=== PATIENT | female | born 1975 | race Caucasian/White ===

== ENCOUNTER → 2018-02-15 | Outpatient (CLI) | payer OTHER ==
--- NOTE | 2018-02-16 13:14 | RADIOLOGY IMAGING REPORT ---
FACILITY: [facility] [place] PATIENT NAME: CAROL TEIXEIRA : [id number] MR: [id number] V: [id number] EXAM DATE: [id number] ORDERING PHYSICIAN: KAYLIN MURPHY TECHNOLOGIST: Krysta Smith PROCEDURE:BILATERAL DIGITAL SCREENING MAMMOGRAM WITH CAD ASSISTED INTERPRETATION & 3D TOMOSYNTHESIS COMPARISON:02/10/17, 01/22/16, 06/09/14 INDICATIONS:SCREENING FINDINGS: Breast parenchyma is heterogeneously dense. There are no mammographic findings concerning for malignancy. There is no significant interval change. DIAGNOSTIC CATEGORY 1--NEGATIVE. RECOMMENDATIONS: ROUTINE MAMMOGRAM AND CLINICAL EVALUATION. IMPRESSION: BIRADS 1: Negative. Dictated by: Angel Liu on 02/16/2018 at 9:33 Transcribed by: MICHAELLE on 02/16/2018 at 12:39 Approved by: Angel Liu on 02/16/2018 at 13:14 [facility]
== END ==
LOC: MAMO 03:18
PROVIDERS: ATTEND Obstetrics & Gynecology
DX: Z12.31 Encounter for screening mammogram for malignant neoplasm of breast (principal)
CPT/HCPCS: 77063; 77067

== ENCOUNTER → 2018-08-26 | Outpatient (CLI) | payer OTHER ==
[~2018-08-26] MED LIST: MULT1CAP59 PO
--- NOTE | 2018-08-26 14:26 | RADIOLOGY IMAGING REPORT ---
FACILITY: [facility] [place] PATIENT NAME: Theresa Gunter : 1975 MR: [id number] V: [id number] EXAM DATE: ORDERING PHYSICIAN: DEAN DUNN TECHNOLOGIST: Location: [facility] [place] Patient: Theresa Gunter : 1975 Visit/Account:[id number] Date of Sevice: 08/26/2018 [facility] TRANSVAGINAL NON-OB HISTORY: OVULATION BLEEDING TECHNIQUE: Transvaginal ultrasound pelvis. COMPARISON: None. FINDINGS: Uterus: ; 8.5 cm length x 5 cm AP x 5.2 cm transverse. Myometrium: There Is a 1.4 cm submucosal fibroid along the right-sided the uterine body. Also noted is a 1.1 cm left intramural fundal fibroid. Endometrium: Unremarkable; double thickness 8.1 mm. Cervix: Several small calcifications are noted within the cervix. Ovaries: Right - 3 x 1.2 x 2.9 cm. There is an 9 mm cyst in the right ovary Left - 2.8 x 2.2 x 3 cm. There is a 1.9 x 1.9 x 1.6 cm complex cyst in the left ovary with inte rnal septations and debris Blood flow is documented in each ovary by duplex Doppler ultrasound. Adnexa: Grossly unremarkable. Free pelvic fluid: None. IMPRESSION: Two small uterine fibroids as described. The largest measures 1.4 cm 9 mm simple cyst right ovary 1.9 cm complex cyst left ovary with internal septations and debris. Short-term interval follow-up re commended Report Dictated By: Rose Espinosa MD at 08/26/2018 2:18 PM Report E-Signed By: Rose Espinosa MD at 08/26/2018 2:22 PM WSN:[email or web address]
== END ==
LOC: RAD 09:49
PROVIDERS: ATTEND Obstetrics & Gynecology
DX: D25.9 Leiomyoma of uterus, unspecified (principal); N83.291 Other ovarian cyst, right side

== ENCOUNTER 2018-10-06 00:33 | Day surgery (SDC) | payer OTHER ==
[~2018-10-06] VITALS: Ht 162.6 cm; Wt 67.1 kg
[~2018-10-06 00:33] MED LIST changes: +CURCUMIN PO; +JUICE PLUS PO; +LACT1CAP6 PO; +TUMERIC PO; +VITAMIN D PO; +[UNRECOGNIZED DRUG - CODE] PO
[2018-10-06 07:41] VITALS: BP 138/85
[2018-10-06 07:57] LABS: PLATELET COUNT, AUTOMATED 359 K/uL (150-450)
[2018-10-06] MEDS ORDERED: DEXAMETHASONE SOD PHOS 10MG/ML ONE (08:19)
[2018-10-06] MEDS ORDERED: ONDANSETRON 4 MG/2 ML VIAL ONE (08:19)
[2018-10-06] MEDS ORDERED: PROPOFOL EMUL(*) 10MG/ML 20 ML 40 ML ONE (08:19)
[2018-10-06] MEDS ORDERED: LOR5/325 PO (08:27)
[2018-10-06] MEDS ORDERED: IBUP800T37 PO (08:27)
--- NOTE | 2018-10-06 08:29 | Short(Outpt) Discharge Summary ---
Discharge Summary Reason for Hosp/Final Diag: (1) Status post hysteroscopy Departure Discharge to: Home Discharge Instructions Home Meds Active Scripts Hydrocodone Bit/Acetaminophen (HYDROCODON-ACETAMINOPHEN 5-325) 1 Each Tablet, 1 EACH PO Q6H PRN for pain, #4 TAB 0 Refills Prov:DEAN DUNN MD 10/06/18 Reported Medications Oregano Oil (OIL OF OREGANO) 1,500 Mg Capsule, 1 DROP PO TWICE A MONTH, CAPSULE 09/23/18 [Curcumin/Tumeric] No Conflict Check, 1 CAP PO QDAY 09/23/18 [Vitamin D] No Conflict Check, 1 SPRAY PO 3XW 09/23/18 [Juice Plus] No Conflict Check, 1 CAP PO QDAY 09/23/18 Lactobacillus Combination No.4 (PROBIOTIC) 1 Each Capsule, 1 EACH PO, CAPSULE 09/23/18 Follow up Referrals: [employer] - In Two Weeks @ [facility] [place] with DEAN DUNN MD Diet: Regular Activity: As Tolerated DEAN DUNN MD Oct 06, 2018 08:29
[2018-10-06] MEDS ORDERED: KETOROLAC 30 MG/ML VIAL ONE (08:48)
[2018-10-06] MEDS ORDERED: LR(*) 1000 ML BAG 1,000 ML IV ONE (09:09)
--- NOTE | 2018-10-06 09:09 | Post Operative Note ---
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
[2018-10-06] MEDS ORDERED: APAP/HYDROCODONE 325/5 TAB PO PRN (09:10)
[2018-10-06] MEDS ORDERED: METOCLOPRAMIDE 10 MG/2 ML SDV IVP PRN (09:10)
[2018-10-06 09:55] VITALS: BP 118/82
[2018-10-06 10:30] VITALS: BP 116/76
[2018-10-06] MEDS ORDERED: FAMOTIDINE 20 MG TAB PO ONE (10:30)
[2018-10-06] MEDS ORDERED: NORMOSOL R SOLN(*) 1000 ML BAG 1,000 ML IV PRN (10:30)
[2018-10-06] MEDS ORDERED: LIDOCAINE/SOD BICARB 8.4% SYR ID ONE (10:30)
[2018-10-06] MEDS ORDERED: MIDAZOLAM 2 MG/2 ML VIAL IVP PRN (10:30)
[2018-10-06 10:46] VITALS: BP 130/92
[2018-10-06 10:48] VITALS: BP 121/98
--- NOTE | 2018-10-06 11:25 | NUR ---
0955- PT. RECEIVED FROM PACU VIA STRETCHER WITH THE SIDERAILS UP. SBAR REPORT RECEIVED FROM JULIETA PALAFOX. PT. TOLERATED TRANSFER WELL AND STATES THAT SHE FEELS GREAT JUST A LITTLE SLEEPY. 1000- NAOMI-PAD CHECKED AND THERE WAS A SMALL AMOUNT OF BLOODY DISCHARGE NOTED ON THE PAD. 1030- PT. GIVEN APPLESAUCE. PT. STATES THAT IT SETTLED WELL AND THAT SHE IS NOT EXPERIENCING ANY NAUSEA. 1040- PT. GIVEN STRING CHEESE AND STATES THAT IT ALL SETTLED WELL AND STILL NO NAUSEA. 1046- PT. STATES THAT SHE IS READY TO GO HOME AND SO ORTHOSTATIC BP'S PREFORMED. 1050- PT. GETTING DRESSED. 1110- TOOK THE PT. IV OUT AND APPLIED A PRESSURE DRESSING. 1115- ESCORTED PT. OUT TO PERSONAL VEHICLE ACCOMPANIED BY KATALINA PALAFOX AND .
--- NOTE | 2018-10-06 11:30 | OPERATIVE REPORT 1 ---
EVENT DATE: October 06, 2018 SURGEON: Ofelia Amin MD ANESTHESIOLOGIST: Dash Schilling MD ANESTHESIA: LMA. PREOPERATIVE DIAGNOSES 1. Intermenstrual spotting. 2. Submucosal myoma on ultrasound. POSTOPERATIVE DIAGNOSES 1. Intermenstrual spotting. 2. Intramural myoma at the right fundal aspect of uterus. PROCEDURE PERFORMED Hysteroscopic dilatation and curettage. SPECIMENS REMOVED Endometrial curettings. IV FLUIDS 800 cc. URINE OUTPUT 100 cc. ESTIMATED BLOOD LOSS Minimal. INDICATIONS FOR PROCEDURE The patient is a 43-year-old 2, para 2 who presented with a longstanding history of intermenstrual spotting. On ultrasound, there is evidence of a submucosa myoma which appeared to be impinging on the endometrial cavity. She, therefore, was consented for a hysteroscopic removal of this lesion. Please see history and physical for full details. DESCRIPTION OF PROCEDURE The patient was properly identified and taken to the operating room. She was placed under general anesthesia and placed in the dorsal lithotomy position and prepped and draped in usual fashion for a vaginal procedure. The bladder was drained of 100 cc's of clear yellow urine. The speculum was placed to visualize the cervix, which was multiparous and without lesion. The anterior lip was grasped with an Allis clamp. The uterus was placed on gentle traction and serially dilated to 6 mm using Hegar dilators. The hysteroscope was then assembled and primed. The hysteroscope was introduced under direct visualization. The endometrial cavity appeared essentially within normal limits. I could see at the right fundal aspect of the endometrial cavity where there is a myoma pushing into the cavity but this was not submucosal. It appears to be more intramural. A curettage was performed of the posterior lining and as close to that fibroid as possible. The hysteroscope was then removed. The endometrial curettings were sent to pathology. The Allis clamp and speculum were removed. The patient tolerated this procedure well and recovered in the Post-Anesthesia Care Unit. All sponge counts are correct at the end of the procedure. [facility]
[2018-10-06] MEDS ORDERED: IBUPROFEN 800 MG TAB PO SCH (14:00)
== END 2018-10-06 09:55 | disposition home or self-care (01) ==
LOC: OR 00:33
PROVIDERS: ATTEND Obstetrics & Gynecology
DX: D25.1 Intramural leiomyoma of uterus (principal)
CPT/HCPCS: 58558; 84703; 85025; 88305; J1100; J1885; J2250; J2405; J2704; 82310; 82374; 82435; 82565; 82947; 84132; 84295; 84520

== ENCOUNTER → 2019-04-18 | Outpatient (CLI) | payer OTHER ==
[~2019-04-18] MED LIST changes: +IBUP800T37 PO; +LOR5/325 PO
--- NOTE | 2019-04-20 13:49 | RADIOLOGY IMAGING REPORT ---
FACILITY: [facility] PATIENT NAME: CAROL TEIXEIRA : [id number] MR: [id number] V: [id number] EXAM DATE: [id number] ORDERING PHYSICIAN: DEAN DUNN TECHNOLOGIST: Rupinder Nielson PROCEDURE: BILATERAL DIGITAL SCREENING MAMMOGRAM WITH CAD ASSISTED INTERPRETATION & 3D TOMOSYNTHESIS. REASON FOR STUDY: Screening. COMPARISON: 02/15/2018 & 02/10/2017. VIEWS OBTAINED: 2D & 3D full field CC & MLO projections. BREAST DENSITY: Breast tissue is heterogeneously dense. MAMMOGRAM FINDINGS: There is no suspicious mass, calcification, or architectural distortion. IMPRESSION: BIRADS 1: Negative. DIAGNOSTIC CATEGORY 1--NEGATIVE. RECOMMENDATIONS: ROUTINE MAMMOGRAM AND CLINICAL EVALUATION IN 1YR. Dictated by: Angel Varma M.D. on 04/20/2019 at 10:49 Transcribed by: ISHA on 04/20/2019 at 11:05 Approved by: Angel Varma M.D. on 04/20/2019 at 13:44 [facility]
== END ==
LOC: MAMO 07:06
PROVIDERS: ATTEND Obstetrics & Gynecology
DX: Z12.31 Encounter for screening mammogram for malignant neoplasm of breast (principal)
CPT/HCPCS: 77063; 77067